=== PATIENT | female | born 1950 | race Caucasian/White ===

== ENCOUNTER → 2021-01-07 | Outpatient (CLI) | payer MEDICARE ==
--- NOTE | 2021-01-08 07:24 | CT ---
EXAMINATION TYPE: CT chest wo con DATE OF EXAM: 01/07/2021 COMPARISON: NONE HISTORY: Contact with asbestos. CT DLP: 543.7 mGycm. Automated Exposure Control for Dose Reduction was Utilized. TECHNIQUE: CT scan of the thorax is performed without IV contrast. High resolution protocol with 1 m m sequences obtained in 10 mm intervals in supine and prone technique. FINDINGS: LUNGS: Mild to moderate linear scarring anteriorly in the lower lungs. Mild upper lung biapical linea r scarring. Mild anterior linear scarring throughout both lungs. No significant peripheral reticulati on or fibrotic change. No honeycombing. No bronchiectasis. No pleural effusion or pneumothorax noted. MEDIASTINUM: Lack of IV contrast and technique are noted to limit evaluation for mediastinal and rufino cially hilar adenopathy. There are no definitive greater than 1 cm mediastinal lymph nodes. Heart siz e upper limits of normal. No pericardial effusion is seen. OTHER: No additional significant abnormality is seen. IMPRESSION: Mild scattered parenchymal fibrotic changes bilaterally without acute pulmonary process.
== END | disposition home or self-care (01) ==
LOC: RADCTMAIN 17:08
PROVIDERS: ATTEND Internal Medicine Critical Care Medicine
DX: J84.10 Pulmonary fibrosis, unspecified (principal); Z77.090 Contact with and (suspected) exposure to asbestos
CPT/HCPCS: 71250